=== PATIENT | male | born 1980 | race Two or more races ===

== ENCOUNTER 2022-09-27 13:46 | Emergency (ER) | payer MEDICAID, OTHER ==
[~2022-09-27] VITALS: Ht 162.6 cm; Wt 61.2 kg
[2022-09-27] MEDS ORDERED: TETANUS-DIPTH-ACEL PERTUSSIS 0.5ML SYR Tdap IM ONE (14:15)
[2022-09-28] VITALS: BP 129/86
== END 2022-09-28 00:37 | disposition short-term general hospital (02) ==
LOC: ER 13:46
DX: S61.211A Laceration without foreign body of left index finger without damage to nail, initial encounter (principal); S61.213A Laceration without foreign body of left middle finger without damage to nail, initial encounter; Z20.822 Contact with and (suspected) exposure to COVID-19; W27.0XXA Contact with workbench tool, initial encounter; Y93.89 Activity, other specified; Y92.89 Other specified places as the place of occurrence of the external cause; Y99.8 Other external cause status
CPT/HCPCS: 36415; 73130; 87426; 90471; 90715